=== PATIENT | male | born 1960 | race Caucasian/White ===

== ENCOUNTER → 2016-05-11 | Outpatient (CLI) | payer OTHER ==
[~2016-05-11] MED LIST: ASPIRIN325 MG PO; BENICAR HCT1 TABLET PO; BENICAR20 MG PO; PERCOCET 7.51 TABLET PO; ZOFRAN ODT8 MG PO
== END | disposition home or self-care (01) ==
LOC: CDC 08:34
DX: Z01.810 Encounter for preprocedural cardiovascular examination (principal); M65.341 Trigger finger, right ring finger; M65.321 Trigger finger, right index finger
CPT/HCPCS: 93000